=== PATIENT | female | born 1965 | race Caucasian/White ===

== ENCOUNTER → 2020-01-04 08:08 | Outpatient (BNVA) | payer OTHER, SELFPAY | PROVIDERS: Family Provider Nurse Practitioner; PCP Nurse Practitioner; Visit Provider Nurse Practitioner | DX: E11.9 Type 2 diabetes mellitus without complications (principal); E03.8 Other specified hypothyroidism | CPT/HCPCS: 80053; 80061; 83036; 84443 ==

== ENCOUNTER → 2020-01-11 09:09 | Outpatient (BNVA) | payer OTHER, SELFPAY | PROVIDERS: Family Provider Nurse Practitioner; PCP Nurse Practitioner; Visit Provider Nurse Practitioner | DX: E11.65 Type 2 diabetes mellitus with hyperglycemia (principal) | CPT/HCPCS: 81003 ==

== ENCOUNTER → 2020-03-26 08:26 | Outpatient (BNVA) | payer OTHER, SELFPAY | PROVIDERS: Family Provider Nurse Practitioner; PCP Nurse Practitioner; Visit Provider Nurse Practitioner | DX: E11.65 Type 2 diabetes mellitus with hyperglycemia (principal); E11.9 Type 2 diabetes mellitus without complications; E03.8 Other specified hypothyroidism; Z79.4 Long term (current) use of insulin | CPT/HCPCS: 80053; 80061; 81000; 83036; 84443 ==

== ENCOUNTER → 2020-07-09 08:09 | Outpatient (BNVA) | payer OTHER, SELFPAY | PROVIDERS: Family Provider Nurse Practitioner; PCP Nurse Practitioner; Visit Provider Nurse Practitioner | DX: E03.8 Other specified hypothyroidism (principal); E11.65 Type 2 diabetes mellitus with hyperglycemia; Z79.4 Long term (current) use of insulin | CPT/HCPCS: 80053; 80061; 81000; 83036; 84443 ==

== ENCOUNTER 2020-08-08 07:16 | Outpatient (CLI) | payer OTHER, SELFPAY ==
--- NOTE | 2020-08-08 07:35 | MM_ITS ---
WS: [id number] BILATERAL DIGITAL SCREENING MAMMOGRAM WITH CAD CLINICAL INFORMATION: SCREEN HISTORY: Screening mammogram. No current complaints. COMPARISON: TECHNIQUE: Bilateral CC and MLO views. FINDINGS: Fatty-replaced breasts bilaterally. No suspicious focal mass, asymmetry, calcifications, or api architect ural distortion. No evidence of malignancy. Stable intramammary lymph nodes. MM/[id number] IMPRESSION: BI-RADS: 2-Benign FOLLOW UP: 1 Year Follow-up Recommend return to annual screening mammography.
== END 2020-08-08 07:17 | disposition home or self-care (01) ==
LOC: RADSHAW 07:18
PROVIDERS: PCP Nurse Practitioner; Visit Provider Nurse Practitioner
DX: Z12.31 Encounter for screening mammogram for malignant neoplasm of breast (principal)
CPT/HCPCS: 77067

== ENCOUNTER → 2020-10-03 07:58 | Outpatient (BNVA) | payer OTHER, SELFPAY | PROVIDERS: PCP Nurse Practitioner; Visit Provider Nurse Practitioner | DX: E03.8 Other specified hypothyroidism (principal); E11.65 Type 2 diabetes mellitus with hyperglycemia; Z79.4 Long term (current) use of insulin | CPT/HCPCS: 80053; 80061; 81000; 83036; 84443 ==

== ENCOUNTER → 2021-01-14 08:03 | Outpatient (BNVA) | payer OTHER, SELFPAY | PROVIDERS: PCP Nurse Practitioner; Visit Provider Nurse Practitioner | DX: E03.8 Other specified hypothyroidism (principal); E11.65 Type 2 diabetes mellitus with hyperglycemia; Z79.4 Long term (current) use of insulin | CPT/HCPCS: 80053; 80061; 81000; 83036; 84443 ==

== ENCOUNTER → 2021-03-14 13:56 | Outpatient (BNVA) | payer OTHER, SELFPAY | PROVIDERS: PCP Nurse Practitioner; Visit Provider Nurse Practitioner | DX: N39.0 Urinary tract infection, site not specified (principal); E11.65 Type 2 diabetes mellitus with hyperglycemia; Z79.4 Long term (current) use of insulin; R30.0 Dysuria | CPT/HCPCS: 81000 ==

== ENCOUNTER → 2021-04-05 08:11 | Outpatient (BNVA) | payer OTHER, SELFPAY | PROVIDERS: PCP Nurse Practitioner; Visit Provider Nurse Practitioner | DX: E03.8 Other specified hypothyroidism (principal); E11.65 Type 2 diabetes mellitus with hyperglycemia; Z79.4 Long term (current) use of insulin | CPT/HCPCS: 80053; 80061; 81000; 83036; 84443 ==

== ENCOUNTER → 2021-07-01 08:06 | Outpatient (BNVA) | payer OTHER, SELFPAY | PROVIDERS: PCP Nurse Practitioner; Visit Provider Nurse Practitioner | DX: E11.65 Type 2 diabetes mellitus with hyperglycemia (principal); Z79.4 Long term (current) use of insulin; E03.8 Other specified hypothyroidism | CPT/HCPCS: 80053; 80061; 81000; 83036; 84443 ==

== ENCOUNTER 2021-08-23 08:02 | Outpatient (CLI) | payer OTHER, SELFPAY ==
--- NOTE | 2021-08-23 08:30 | MM_ITS ---
WS: [id number] BILATERAL DIGITAL SCREENING MAMMOGRAPHY WITH CAD CLINICAL INFORMATION: Z12.39 - Encounter for other screening for malignant neop... HISTORY: Screening mammogram. No current complaints. COMPARISON: August 08, 2020 TECHNIQUE: Bilateral CC and MLO views. FINDINGS: Scattered fibroglandular densities bilaterally. Stable left intramammary lymph nodes. No suspicious f ocal mass, asymmetry, calcifications, or architectural distortion. No evidence of malignancy. MM/[place] [id number] IMPRESSION: BI-RADS: 2-Benign FOLLOW UP: 1 Year Follow-up Recommend return to annual screening mammography.
== END 2021-08-23 08:03 | disposition home or self-care (01) ==
PROVIDERS: PCP Nurse Practitioner; Visit Provider Nurse Practitioner
DX: Z12.31 Encounter for screening mammogram for malignant neoplasm of breast (principal)
CPT/HCPCS: 77067

== ENCOUNTER → 2021-09-30 08:06 | Outpatient (BNVA) | payer OTHER, SELFPAY | PROVIDERS: PCP Nurse Practitioner; Visit Provider Nurse Practitioner | DX: E11.65 Type 2 diabetes mellitus with hyperglycemia (principal); Z79.4 Long term (current) use of insulin; E03.8 Other specified hypothyroidism | CPT/HCPCS: 80053; 80061; 83036; 84443 ==

== ENCOUNTER → 2021-10-02 08:47 | Outpatient (BNVA) | payer OTHER, SELFPAY | PROVIDERS: PCP Nurse Practitioner; Visit Provider Nurse Practitioner | DX: E11.65 Type 2 diabetes mellitus with hyperglycemia (principal); Z79.4 Long term (current) use of insulin | CPT/HCPCS: 81000 ==

== ENCOUNTER → 2021-12-23 07:56 | Outpatient (BNVA) | payer OTHER, SELFPAY | PROVIDERS: PCP Nurse Practitioner; Visit Provider Nurse Practitioner | DX: E11.65 Type 2 diabetes mellitus with hyperglycemia (principal); Z79.4 Long term (current) use of insulin; E03.8 Other specified hypothyroidism | CPT/HCPCS: 80053; 80061; 81000; 83036; 84443 ==

== ENCOUNTER → 2022-03-21 08:06 | Outpatient (BNVA) | payer OTHER, SELFPAY | PROVIDERS: PCP Nurse Practitioner; Visit Provider Nurse Practitioner | DX: E11.65 Type 2 diabetes mellitus with hyperglycemia (principal); Z79.4 Long term (current) use of insulin; E03.8 Other specified hypothyroidism | CPT/HCPCS: 80053; 80061; 83036; 84443 ==

== ENCOUNTER → 2022-04-01 10:02 | Outpatient (BNVA) | payer OTHER, SELFPAY | PROVIDERS: PCP Nurse Practitioner; Visit Provider Nurse Practitioner | DX: E11.65 Type 2 diabetes mellitus with hyperglycemia (principal); Z79.4 Long term (current) use of insulin; Z79.890 Hormone replacement therapy; E03.8 Other specified hypothyroidism; E66.9 Obesity, unspecified | CPT/HCPCS: 81000 ==

== ENCOUNTER → 2022-07-14 08:05 | Outpatient (BNVA) | payer OTHER, SELFPAY | PROVIDERS: PCP Nurse Practitioner; Visit Provider Nurse Practitioner | DX: E03.8 Other specified hypothyroidism (principal); E11.65 Type 2 diabetes mellitus with hyperglycemia; Z79.4 Long term (current) use of insulin | CPT/HCPCS: 80053; 80061; 81000; 83036; 84443 ==

== ENCOUNTER 2022-08-29 06:51 | Outpatient (CLI) | payer OTHER, SELFPAY ==
--- NOTE | 2022-08-29 07:21 | MM_ITS ---
WS: [id number] BILATERAL SCREENING DIGITAL TOMOSYNTHESIS MAMMOGRAM WITH CAD HISTORY: SCREENING COMPARISON: 06/21/2018, 08/23/2021, 08/08/2020 Bilateral CC and MLO views with tomosynthesis and synthetic mammography submitted. Computer aided det ection analyzed. Breast composition: There are scattered areas of fibroglandular density. No suspicious masses, microc alcifications or architectural distortion. Ovoid nodule posterior to the LEFT nipple stable over mult iple prior years. Small lymph nodes are noted and stable within each breast. MM/[place] [id number] IMPRESSION: BI-RADS: 2-Benign FOLLOW UP: 1 Year Follow-up
== END 2022-08-29 06:52 | disposition home or self-care (01) ==
LOC: RAD 06:51
PROVIDERS: PCP Nurse Practitioner; Visit Provider Nurse Practitioner
DX: Z12.31 Encounter for screening mammogram for malignant neoplasm of breast (principal)
CPT/HCPCS: 77063; 77067

== ENCOUNTER → 2022-10-13 08:10 | Outpatient (BNVA) | payer OTHER, SELFPAY | PROVIDERS: PCP Nurse Practitioner; Visit Provider Nurse Practitioner | DX: E03.8 Other specified hypothyroidism (principal); E11.65 Type 2 diabetes mellitus with hyperglycemia; Z79.4 Long term (current) use of insulin | CPT/HCPCS: 80053; 80061; 81000; 83036; 84443 ==

== ENCOUNTER → 2022-11-27 14:20 | Outpatient (BNVA) | payer OTHER, SELFPAY | PROVIDERS: PCP Nurse Practitioner; Visit Provider Emergency Medicine | DX: N39.0 Urinary tract infection, site not specified (principal); N10 Acute pyelonephritis | CPT/HCPCS: 81000; 87077; 87086; 87184 ==

== ENCOUNTER → 2023-01-02 08:02 | Outpatient (BNVA) | payer OTHER, SELFPAY | PROVIDERS: PCP Nurse Practitioner; Visit Provider Nurse Practitioner | DX: E03.8 Other specified hypothyroidism (principal); E11.65 Type 2 diabetes mellitus with hyperglycemia; Z79.4 Long term (current) use of insulin | CPT/HCPCS: 80053; 80061; 81000; 83036; 84443 ==

== ENCOUNTER 2023-01-15 14:58 | Emergency (ER) | payer OTHER, SELFPAY ==
[2023-01-15 15:08] VITALS: BP 112/79; PULSE 101; RESP 14; TEMP 36.8; O2SAT 95; BMI 28.7
[2023-01-15 15:30] VITALS: BP 116/78; PULSE 98; RESP 16; O2SAT 96
--- NOTE | 2023-01-15 15:35 | ECG_ITS ---
[facility] Test Date: 2023-01-15 Pat Name: Daysi Mace Department: Room: Gender: Female Performance Tester: : 1965 Requested By: Sohail Silver Order Number: [id number] Edith MD: Madison Nina M.D. Measurements Intervals [place] Rate: 97 P: 55 MN: 140 QRS: -21 QRSD: 93 T: 37 QT: 349 QTc: 444 Interpretive Statements SINUS RHYTHM POSSIBLE ANTERIOR MYOCARDIAL INFARCTION , OF INDETERMINATE AGE [30 ms Q WAVE IN V3/V4, OR R < 0.2 mV IN V4] No previous ECG available for comparison Electronically Signed On 01-15-2023 22:23:40 TEACHER OF THE HANDICAPPED by Madison Nina M.D. [id number]
[2023-01-15 15:43] LABS: Glucose Point of Care 80 mg/dL (70-110)
[2023-01-15 15:45] LABS: Basophils # 0.1 10^3/uL (0.0-0.1); Basophils % 0.6 %; Eosinophils # 0.1 10^3/uL (0.0-0.8); Eosinophils % 1.2 %; Hematocrit 43.9 % (37.0-47.0); Lymphocytes # 2.4 10^3/uL (0.8-4.8); Lymphocytes % 30.1 %; Mean Corpuscular HGB Conc 31.9 g/dL (30.0-36.0); Mean Corpuscular Hemoglobin 30.6 pg (28.0-34.0); Mean Corpuscular Volume 96.1 fl (81-99); Mean Platelet Volume 10.9 fL (7.4-10.4); Monocytes # 0.6 10^3/uL (0.2-0.9); Neutrophils # 4.88 10^3/uL (1.8-7.7); Neutrophils % 60.9 %; Nucleated Red Blood Cells % 0 %; Platelet Count 268 10^3/cmm (130-400); Red Blood Count 4.57 10^6/uL (4.1-5.3)
--- NOTE | 2023-01-15 16:19 | ED_ITS ---
HPI - Seizure General: Chief Complaint: Seizure Stated Complaint: LOW BLOOD SUGAR/ SEIZURE Time Seen by Provider: 01/15/23 15:08 Source: patient Mode of arrival: ambulatory History of Present Illness: HPI Narrative: 57-year-old female brought in via EMS because of a presumed witnessed seizure. She was noted to be hypoglycemic by EMS on the scene and given D10. On arrival here she is awake and alert has no further symptoms. She arrives in the ER with a blood sugar tested at 80. She is usually uses Toujeo at night but she adjusts the dose of her Toujeo and also adjust her Humalog during the day when asked how she makes her adjustments she essentially admitted that she kind of makes a gestalt gas that her needs. She has had some issues with hypoglycemia previously as well and I did review and made some adjustments to her insulin dose at home recently. She currently sees a nurse practitioner. Onset (ago): minute(s) Description of Episode: loss of consciousness Witnessed: Yes - by Bystander Trauma: No Seizure History: No Place: Work Possible Precipitating Event: other (Hypoglycemia) Associated symptoms: Deny chest pain, chills, confusion, cough, diaphoresis, fev er(s), anorexia, malaise, rash, short of breath, syncope or weakness Review of Systems Const: Denies: fever(s), chills, body aches, change in appetite, fatigue, malaise or diaphoresis ENMT: Denies: throat pain, ear or mastoid pain, nasal discharge or nasal congestion Card: Denies: chest pain, palpitations, irregular heart rhythm, edema, syncope, dyspnea on exertion or orthopnea Resp: Denies: dyspnea, productive cough or non-productive cough GI: Denies: abdominal pain, nausea, vomiting, hematemesis, coffee ground emesis, diarrhea, constipation, bloating, hematochezia or melena : Denies: flank pain, difficulty voiding, dysuria, urinary frequency or urinary urgency Skin/Breast: Denies: rash or pruritus Neuro: Denies: confusion PFSH ED PFSH: Medical History Adult onset hypothyroidism Diabetes mellitus with hyperglycemia, with long-term current use of insulin Post-menopause on HRT (hormone replacement therapy) Surgical History History of ankle surgery (~2007) right with plates and screws Family History Other Cancer Hypertension Social History Smoking and tobacco status: never smoked Second hand smoke exposure: No Smoking risk assessment/counseling performed?: No Alcohol intake: never Desire information about alcohol rehabilitation?: No Counseling given: No Desire information about substance/drug rehabilitation?: No Counseling given: No Adopted: No Caregiver/support person: No Lives independently: Yes Household members: other Marital status: Single Number of children: 0 service: No Current occupational status: employed Current gender identity: Female Physical Exam Const: GENERAL APPEARANCE: cooperative and comfortable ORIENTATION/CONSCIOUSNESS: Yes awake, Yes oriented to person, Yes oriented to place and Yes oriented to time HENMT: COMMON NORMALS: normocephalic, atraumatic and hearing grossly normal bilaterally HEAD & SCALP: normocephalic and atraumatic Resp: COMMON NORMALS: normal respiratory effort, No retractions, No use of accessory muscles and clear to auscultation bilaterally AUSCULTATION: clear to auscultation bilaterally Cardio: COMMON NORMALS: regular rate, regular rhythm and No murmurs present (Cardio) RATE: regular rate RHYTHM: regular rhythm GI: COMMON NORMALS: Soft to palpation and No hepatosplenomegaly present AUSCULTATION: Yes normoactive bowel sounds PALPATION: Yes Soft to palpation, No Tenderness to palpation present (GI), No Guarding due to palpation present (GI) and Yes No hepatosplenomegaly present Extremity: COMMON NORMALS: normal to inspection, capillary refill normal, no clubbing, cyanosis or edema, no calf tenderness and no pedal edema Neuro: SENSORIUM/ORIENTATION: Yes oriented to person, Yes oriented to place and Yes oriented to time Skin: COMMON NORMALS: no rashes or lesions noted GENERAL SKIN EXAM: no rashes or lesions noted Course Vital Signs: Vital signs: Vital Signs Temperature 98.2 F 01/15/23 15:08 Pulse Rate 104 H 01/15/23 17:54 Respiratory Rate 16 01/15/23 17:54 Blood Pressure 116/85 01/15/23 17:54 Pulse Oximetry 95 01/15/23 17:54 Oxygen Delivery Me thod 01/15/23 15:08 MDM - Seizure MDM Narrative Medical decision making narrative: Patient hypoglycemic episode. Blood sugars are not well controlled as she has been adjusting her Toujeo dose at night as well as her shorting acting insulin during the day. Generally she has been using a 15 or 16 units of the Toujeo. I asked her for now to decrease to 12 units uses sliding scale during the day and we will get her set up to see Dr. Wilson after fluids and eating her blood pressure is stabilized in the upper 100s and she is feeling much better. Medical Records Attestation: I reviewed the patient's medical records. Lab Data Attestation: I reviewed the patient's lab results. 01/15/23 15:20 01/15/23 16:00 Labs: Laboratory Results WBC 8.0 10^3/uL (4.0-10.0) 01/15/23 15:20 RBC 4.57 10^6/uL (4.1-5.3) 01/15/23 15:20 Hgb 14.0 g/dL (11.5-15.3) 01/15/23 15:20 Hct 43.9 % (37.0-47.0) 01/15/23 15:20 MCV 96.1 fl (81-99) 01/15/23 15:20 MCH 30.6 pg (28.0-34.0) 01/15/23 15:20 MCHC 31.9 g/dL (30.0-36.0) 01/15/23 15:20 RDW 12.0 % (12.1-15.1) L 01/15/23 15:20 Plt Count 268 10^3/cmm (130-400) 01/15/23 15:20 MPV 10.9 fL (7.4-10.4) H 01/15/23 15:20 Neut % (Auto) 60.9 % 01/15/23 15:20 Lymph % (Auto) 30.1 % 01/15/23 15:20 [place] % (Auto) 7.0 % 01/15/23 15:20 Eos % (Auto) 1.2 % 01/15/23 15:20 Baso % (Auto) 0.6 % 01/15/23 15:20 Neut # (Auto) 4.88 10^3/uL (1.8-7.7) 01/15/23 15:20 Lymph # (Auto) 2.4 10^3/uL (0.8-4.8) 01/15/23 15:20 [place] # (Auto) 0.6 10^3/uL (0.2-0.9) 01/15/23 15:20 Eos # (Auto) 0.1 10^3/uL (0.0-0.8) 01/15/23 15:20 Baso # (Auto) 0.1 10^3/uL (0.0-0.1) 01/15/23 15:20 Nucleated RBC % (auto) 0 % 01/15/23 15:20 Nucleated RBCs # 0.0 /100WBC 01/15/23 15:20 Sodium 140 mmol/L (136-145) 01/15/23 16:00 Potassium 4.4 mmol/L (3.5-5.1) 01/15/23 16:00 Chloride 102 mmol/L (98-107) 01/15/23 16:00 Carbon Dioxide 27 mmol/L (22-29) 01/15/23 16:00 Anion Gap 15.4 (5-19) 01/15/23 16:00 BUN 12 mg/dL (6-20) 01/15/23 16:00 Creatinine 0.6 mg/dL (0.5-0.9) 01/15/23 16:00 GFR Calculation 102.3 mL/min (90-130) 01/15/23 16:00 Glucose 84 mg/dL (65-115) 01/15/23 16:00 POC Glucose 179 mg/dL (70-110) H 01/15/23 17:34 Calculated Osmolality 289 mOsm/kg (285-295) 01/15/23 16:00 Calcium 9.7 mg/dL (8.5-10.5) 01/15/23 16:00 Creatine Kinase 133 U/L (26-192) 01/15/23 16:00 Discharge Plan Discharge Patient Disposition: Home Clinical Impression: Hypoglycemia, 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, with long-term current use of insulin Condition: Stable Prescriptions: No Action Jardiance 25 mg tablet 25 mg PO QAM Qty: 30 2RF estradiol [Estrace] 0.5 mg tablet 0.5 mg PO DAILY 23 Days Qty: 23 2RF Rx Instructions: off 5 days; repeat cycle Toujeo Max U-300 SoloStar 300 unit/mL (3 mL) insulin pen See Rx Instructions SUBCUT DAILY Qty: 6 2RF Rx Instructions: up to 80 SUBCUT daily; Humalog KwikPen Insulin 200 unit/mL (3 mL) insulin pen 3 - 18 unit SUBCUT TID Qty: 6 2RF levothyroxine [Synthroid] 88 mcg tablet See Rx Instructions PO DAILY Qty: 35 2RF Rx Instructions: 1.5 tab on M&F 1 tab all other days PO daily; lisinopril 2.5 mg tablet 2.5 mg PO DAILY Qty: 30 2RF metformin 500 mg tablet extended release 24 hr 2,000 mg PO DAILY Qty: 120 2RF progesterone micronized [Prometrium] 100 mg capsule 100 mg PO QAM 10 Days Qty: 10 2RF Rx Instructions: use day 1-10 each month Ozempic 1 mg/dose (4 mg/3 mL) pen injector 1 mg SUBCUT .weekly Qty: 3 2RF atorvastatin 10 mg tablet 10 mg PO DAILY Qty: 30 2RF (DME) pen needle, diabetic [TRUEplus Pen Needle] 32 gauge x 5/32 needle See Rx Instructions .ROUTE .MEDSUPPLY Qty: 200 5RF Rx Instructions: 5 time day (DME) FreeStyle Catracho 2 Sensor Kit See Rx Instructions .ROUTE .MEDSUPPLY Qty: 2 11RF Rx Instructions: change every 14 days (DME) FreeStyle Catracho 2 [place] Misc See Rx Instructions .ROUTE .MEDSUPPLY Qty: 1 0RF Rx Instructions: As directed Discharge Orders: Discharge ED (Routine); Ordered 01/15/23 Ordered By: Sohail Henning Referrals: Nellie Naqvi, PROFESSOR OF COMMUNICATION [employer] [Primary Care Provider] - Discharge Diet: Usual diet Discharge Activity: Resume usual activity Patient Instructions: Opioid Safety, Pain Management Activity Restrictions/Additional Instructions: You were seen today for hypoglycemic episode. Would recommend that you decrease your nighttime long-term insulin Truleo to 12 units each night. internal control manager will make arrangements for you to establish with Dr. Wilson at the endocrinology clinic. Coding Level of Care Code ED Knitting Demonstrator for Addis Kim
[2023-01-15 16:28] LABS: Anion Gap 15.4 (5-19); Blood Urea Nitrogen 12 mg/dL (6-20); Calcium 9.7 mg/dL (8.5-10.5); Carbon Dioxide 27 mmol/L (22-29); Chloride 102 mmol/L (98-107); Creatine Phosphokinase 133 U/L (26-192); Glomerular Filtration Rate 102.3 mL/min (90-130); Glucose 84 mg/dL (65-115); Osmolality Calculated 289 mOsm/kg (285-295); Potassium 4.4 mmol/L (3.5-5.1); Sodium 140 mmol/L (136-145)
[2023-01-15 16:30] VITALS: BP 121/72; PULSE 95; O2SAT 97
[2023-01-15 16:38] LABS: Glucose Point of Care 97 mg/dL (70-110)
--- NOTE | 2023-01-15 17:06 | PC.NURSE ---
dr. kessler requested pt eat a snack to assist with increase in blood glucose. pt given sandwich and snack pack.
[2023-01-15 17:37] LABS: Glucose Point of Care 179 mg/dL (70-110)
--- NOTE | 2023-01-15 17:39 | PC.NURSE ---
PT POST SNACK BLOOD SUGAR 179
[2023-01-15 17:54] VITALS: BP 116/85; PULSE 104; RESP 16; O2SAT 95
--- NOTE | 2023-01-16 09:43 | DCPLANNER ---
Addendum entered by Sherie Olivera 03/18/23 08:27: Patient had a follow up appointment scheduled with endocrinology - patient did attend appointment. Addendum entered by Sherie Olivera 01/20/23 15:05: Patient has a follow up appointment scheduled for Monday, March 13, 2023 at 8:[address] Wilson at endocrinology. Clinic will call patient with appointment information. Original Note: manager perioperative had message to schedule a follow up appointment for patient with endocrinology. manager perioperative sent patients information to the front office staff at endocrinology. Patients information will be printed and reviewed. Clinic will call patient with appointment information.
== END 2023-01-15 17:56 | disposition home or self-care (01) ==
PROVIDERS: Emergency Provider Family Medicine; PCP Nurse Practitioner
DX: E11.649 Type 2 diabetes mellitus with hypoglycemia without coma (principal); E11.628 Type 2 diabetes mellitus with other skin complications; Z79.4 Long term (current) use of insulin; Z79.890 Hormone replacement therapy
CPT/HCPCS: 36415; 36416; 80048; 82550; 82962; 85025; 93005; 99284

== ENCOUNTER → 2023-04-06 07:55 | Outpatient (BNVA) | payer OTHER, SELFPAY | PROVIDERS: PCP Nurse Practitioner; Visit Provider Nurse Practitioner | DX: E11.65 Type 2 diabetes mellitus with hyperglycemia (principal); E03.8 Other specified hypothyroidism; Z79.4 Long term (current) use of insulin | CPT/HCPCS: 80053; 80061; 83036; 84443 ==

== ENCOUNTER → 2023-06-26 07:59 | Outpatient (BNVA) | payer OTHER, SELFPAY | PROVIDERS: PCP Nurse Practitioner; Visit Provider Nurse Practitioner | DX: E11.65 Type 2 diabetes mellitus with hyperglycemia (principal); Z79.4 Long term (current) use of insulin; E03.8 Other specified hypothyroidism | CPT/HCPCS: 80053; 80061; 81000; 83036; 84443 ==

== ENCOUNTER 2023-07-06 07:29 | Outpatient (CLI) | payer OTHER, SELFPAY ==
[2023-07-06 08:20] LABS: Anion Gap 13.3 (5-19); Blood Urea Nitrogen 16 mg/dL (6-20); Calcium 9.1 mg/dL (8.5-10.5); Carbon Dioxide 27 mmol/L (22-29); Chloride 102 mmol/L (98-107); Glomerular Filtration Rate 126.3 mL/min (90-130); Glucose 236 mg/dL (65-115); Osmolality Calculated 295 mOsm/kg (285-295); Potassium 4.3 mmol/L (3.5-5.1); Sodium 138 mmol/L (136-145)
[2023-07-08 14:44] LABS: C-Peptide <0.10 ng/mL (0.80-3.85)
== END 2023-07-06 07:30 | disposition home or self-care (01) ==
PROVIDERS: PCP Nurse Practitioner; Visit Provider Internal Medicine
DX: E11.65 Type 2 diabetes mellitus with hyperglycemia (principal); E78.2 Mixed hyperlipidemia; Z79.4 Long term (current) use of insulin
CPT/HCPCS: 36415; 80048; 84681

== ENCOUNTER 2023-09-04 07:04 | Outpatient (CLI) | payer OTHER, SELFPAY ==
--- NOTE | 2023-09-04 07:53 | MM_ITS ---
WS: [id number] BILATERAL SCREENING DIGITAL TOMOSYNTHESIS MAMMOGRAM WITH CAD HISTORY: SCREEN COMPARISON: 08/29/2022 and 08/23/2021 and 06/21/2018 Bilateral CC and MLO views with tomosynthesis and synthetic mammography submitted. Computer aided det ection analyzed. Breast composition: There are scattered areas of fibroglandular density. No suspicious masses, microc alcifications or architectural distortion. Soft tissue mass posterior to the LEFT nipple is stable fo r multiple prior years. Benign lymph node 3:00 LEFT breast. No distortion. IMPRESSION: MM/[place] [id number] BI-RADS: 2-Benign FOLLOW UP: 1 Year Follow-up
== END 2023-09-04 07:05 | disposition home or self-care (01) ==
LOC: RAD 07:05
PROVIDERS: PCP Nurse Practitioner; Visit Provider Nurse Practitioner
DX: Z12.31 Encounter for screening mammogram for malignant neoplasm of breast (principal)
CPT/HCPCS: 77063; 77067

== ENCOUNTER → 2023-09-25 08:08 | Outpatient (BNVA) | payer OTHER, SELFPAY | PROVIDERS: PCP Nurse Practitioner; Visit Provider Nurse Practitioner | DX: E03.8 Other specified hypothyroidism (principal); E10.9 Type 1 diabetes mellitus without complications | CPT/HCPCS: 80053; 80061; 81000; 83036; 84443 ==

== ENCOUNTER 2023-10-08 07:45 | Outpatient (CLI) | payer OTHER, SELFPAY ==
[2023-10-08 09:43] LABS: Estmated Average Glucose 186; Hemoglobin A1C 8.1 % (4.0-6.0)
== END 2023-10-08 07:46 | disposition home or self-care (01) ==
LOC: LAB 07:46
PROVIDERS: PCP Nurse Practitioner; Visit Provider Internal Medicine
DX: E03.8 Other specified hypothyroidism (principal)
CPT/HCPCS: 36415; 83036

== ENCOUNTER → 2023-12-16 08:09 | Outpatient (BNVA) | payer OTHER, SELFPAY | PROVIDERS: PCP Nurse Practitioner; Visit Provider Internal Medicine | DX: E10.9 Type 1 diabetes mellitus without complications (principal); E03.8 Other specified hypothyroidism; Z79.899 Other long term (current) drug therapy | CPT/HCPCS: 80053; 80061; 82043; 83036; 84439; 84443 ==

== ENCOUNTER 2024-01-07 05:27 | Day surgery (SDC) | payer OTHER, SELFPAY ==
[2024-01-07 06:02] VITALS: BP 105/62; PULSE 80; RESP 18; TEMP 36.2; O2SAT 96
[2024-01-07 06:03] VITALS: BMI 24.3
[2024-01-07] MEDS: sodium chloride 0.9% 1,000 ML 30 ML IV (06:06)
[2024-01-07 06:15] LABS: Glucose Point of Care 237 mg/dL (70-110)
--- NOTE | 2024-01-07 06:25 | ANES.PREANE2 ---
Pre-Anesthetic Assessment Height/Weight: Height 1.6 m Weight 62.142 kg Temp Pulse Resp BP Pulse Ox O2 Del Method 97.1 F L 80 18 105/62 96 Room Air 01/07/24 06:02 01/07/24 06:02 01/07/24 06:02 01/07/24 06:02 01/07/24 06:02 01/07/24 06:02 Preop Diagnosis: Screening Operation Date: 01/07/24 07:00 [place] Procedures [place] 68091 colon G0121 screen colon A risk Z12.11(Not Applicable) - Benson Shaffer MD Familial anesthetic complications: None Was Beta Kylee taken within 24 hours: N/A Was Clonidine taken within 24 hours: N/A Last intake: Intake Last Liquid Date 01/06/24 Last Liquid Time 20:00 Last Solid Date 01/05/24 Social No alcohol and No tobacco Exam alert, oriented x 3, clear to auscultation bilaterally and regular rate & rhythm Airway Submandibular: within normal limits Cervical ROM: within normal limits Mallampati: Class II Dentition: full History/ROS No significant history except as noted and No significant complaints Pulmonary None reported CV/HEM None reported None reported Hepatic None reported GI None reported Metabolic Diabetes Mellitus and Thyroid Disease [facility] [place] None reported Neuropsych Seizure (March 2023 d/t hypoglycemia) Anesthetic Plan ASA status: 2 Anesthesia: Anesthesia Evaluation, General and MAC Risk of > 500 ml blood loss (7ml/kg in children): No Medications/Allergies Home Medications Medication Instructions Recorded Confirmed Last Taken Type flash glucose scanning reader #1 ea 10/29/22 01/06/24 01/06/24 Rx (FreeStyle Catracho 2 [place]) fluticasone propionate 50 1 spray intranasal DAILY PRN nasal 05/03/23 01/06/24 01/05/24 Rx mcg/actuation nasal congestion #16 grams spray,suspension (Flonase Allergy Relief) pen needle, diabetic 32 gauge x #200 ea 09/02/23 01/06/24 01/06/24 Rx 5/32 (TRUEplus Pen Needle) flash glucose sensor (FreeStyle #2 ea 09/21/23 01/06/24 01/06/24 Rx Catracho 2 Sensor kit) atorvastatin 10 mg tablet 10 mg PO DAILY #30 tabs 12/23/23 01/06/24 01/06/24 Rx blood sugar diagnostic (OneTouch #100 ea 12/23/23 01/06/24 01/06/24 Rx Verio test strips) estradiol 0.5 mg tablet (Estrace) 0.5 mg PO DAILY 23 days #23 tabs 12/23/23 01/06/24 01/06/24 Rx insulin glargine U-300 conc 300 See Rx Instructions SUBCUT DAILY 12/23/23 01/06/24 01/06/24 Rx unit/mL (3 mL) subcutaneous pen #6 mL (Toujeo Max U-300 SoloStar) insulin lispro 200 unit/mL (3 mL) 3 - 18 unit (0.015 - 0.09 mL) 12/23/23 01/06/24 01/06/24 Rx subcutaneous pen (Humalog KwikPen SUBCUT TID #6 mL U-200 Insulin) levothyroxine 88 mcg tablet See Rx Instructions PO DAILY #35 12/23/23 01/06/24 01/06/24 Rx (Synthroid) tabs lisinopril 2.5 mg tablet 2.5 mg PO DAILY #30 tabs 12/23/23 01/06/24 01/06/24 Rx progesterone micronized 100 mg 100 mg PO QAM 10 days #10 caps 12/23/23 01/06/24 01/06/24 Rx capsule (Prometrium) tirzepatide 10 mg/0.5 mL 10 mg (0.5 mL) SUBCUT .weekly #2 mL 12/23/23 01/06/24 12/28/23 Rx subcutaneous pen injector (Mounjaro) Allergies Allergy/AdvReac Type Severity Reaction Status Date / Time cefuroxime [From Ceftin] Allergy ALGY-Hives Verified 01/07/24 06:07 Sulfa (Sulfonamide Allergy ALGY-Rash Verified 01/07/24 06:07 Antibiotics) Current Medications Generic Name Dose Route Start Last Admin Trade Name Freq PRN Reason Stop Dose Admin Sodium Chloride 1,000 mls @ 30 mls/hr 01/07/24 06:00 01/07/24 06:06 Sodium Chloride 0.9% IV 01/08/24 05:59 30 mls/hr .Q24H STACY Administration PFSH Anesthesia Medical History Post-menopause on HRT (hormone replacement therapy) Adult onset hypothyroidism Surgical History (Updated 12/24/23 @ 08:26 by AMILCAR Pablo) Hx of colonoscopy 13 yrs ago History of ankle surgery (~2007) right with plates and screws Family History Father Cancer colon Other Hypertension Social History Smoking and tobacco/nicotine status: never used tobacco/nicotine Second hand smoke exposure: No Alcohol intake: never Substance/Drug Use: never Adopted: No Caregiver/support person: No Lives independently: Yes Household members: other Marital status: Single Number of children: 0 service: No Current occupational status: employed Do you think of yourself as: Straight/Heterosexual Current gender identity: Female Data Anesthesia Cardiac Studies: No Data to Display
--- NOTE | 2024-01-07 06:33 | W.PM.OPSFHP ---
Same Day Surgery H&P Indication for Procedure/HPI DATE OF PROCEDURE: January 07, 2024 CHIEF COMPLAINT/INDICATIONFOR SURGICAL PROCEDURE: need for screening colonoscopy PREOP DIAGNOSIS: Screening PLANNED PROCEDURE: Operation Date: 01/07/24 07:00 Proposed Procedures p 23626 colon G0121 screen colon A risk Z12.11(Not Applicable) - Benson Shaffer MD Medications/Allergies* Allergies/Adverse Reactions Allergy/AdvReac Type Severity Reaction Status Date / Time cefuroxime [From Ceftin] Allergy ALGY-Hives Verified 01/07/24 06:07 Sulfa (Sulfonamide Allergy ALGY-Rash Verified 01/07/24 06:07 Antibiotics) Current Medications: Generic Name Dose Route Start Last Admin Trade Name Freq PRN Reason Stop Dose Admin Sodium Chloride 1,000 mls @ 30 mls/hr 01/07/24 06:00 01/07/24 06:06 Sodium Chloride 0.9% IV 01/08/24 05:59 30 mls/hr .Q24H STACY Administration Pertinent History/Comorbid Conditions* Medical History (Updated 10/04/23 @ 10:13 by AMILCAR Pablo) Post-menopause on HRT (hormone replacement therapy) Adult onset hypothyroidism Surgical History (Updated 12/24/23 @ 08:26 by AMILCAR Pablo) Hx of colonoscopy 13 yrs ago History of ankle surgery (~2007) right with plates and screws Family History (Updated 10/12/23 @ 08:09 by MARLENE Ackerman) Cancer Father colon Hypertension Social History Smoking and tobacco/nicotine status: never used tobacco/nicotine Second hand smoke exposure: No Alcohol intake: never Substance/Drug Use: never Adopted: No Caregiver/support person: No Lives independently: Yes Household members: other Marital status: Single Number of children: 0 service: No Current occupational status: employed Do you think of yourself as: Straight/Heterosexual Current gender identity: Female Pertinent Exam Findings alert, oriented x 3, clear to auscultation bilaterally and regular rate & rhythm Recommendations Surgery/Procedure today Coding Level of Care Code Acute Code for Chg Julio
[2024-01-07 07:28] VITALS: BP 128/76; PULSE 91; RESP 12; TEMP 36.2; O2SAT 98
[2024-01-07 07:40] VITALS: BP 116/74; PULSE 92; RESP 18; O2SAT 98
--- NOTE | 2024-01-07 13:15 | ANE.PACU2 ---
Inpatient post-anesthesia follow up: Airway intact: Yes Vital signs: Temperature 97.2 F Pulse Rate 92 Respiratory Rate 18 Blood Pressure 116/74 Pulse Oximetry 98 Oxygen Delivery Me thod Room Air Oxygen Flow Rate Fraction of Inspir ed Oxygen Hydration adequate: Yes Nausea and vomiting: No Pain level: 2 Mental status: Baseline
== END 2024-01-07 08:04 | disposition home or self-care (01) ==
PROVIDERS: PCP Nurse Practitioner; Visit Provider Surgery
PROC: 0DJD8ZZ Inspection of Lower Intestinal Tract, Via Natural or Artificial Opening Endoscopic (ICD-10-PCS; CPT 45378; principal; 2024-01-07 07:00)
DX: Z12.11 Encounter for screening for malignant neoplasm of colon (principal); E03.9 Hypothyroidism, unspecified; E11.9 Type 2 diabetes mellitus without complications; Z79.4 Long term (current) use of insulin
CPT/HCPCS: 36416; 45378; 82962; J0461; J2704; J3490; J7030

== ENCOUNTER → 2024-03-14 08:09 | Outpatient (BNVA) | payer OTHER, SELFPAY | PROVIDERS: PCP Nurse Practitioner; Visit Provider Nurse Practitioner | DX: E03.8 Other specified hypothyroidism (principal); E10.9 Type 1 diabetes mellitus without complications; Z79.899 Other long term (current) drug therapy | CPT/HCPCS: 80053; 80061; 81000; 82043; 83036; 84439; 84443 ==

== ENCOUNTER → 2024-05-20 08:01 | Outpatient (BNVA) | payer OTHER, SELFPAY | PROVIDERS: PCP Nurse Practitioner; Visit Provider Nurse Practitioner | DX: E11.65 Type 2 diabetes mellitus with hyperglycemia (principal); Z79.4 Long term (current) use of insulin; E03.8 Other specified hypothyroidism; E03.9 Hypothyroidism, unspecified | CPT/HCPCS: 80053; 80061; 81000; 82043; 83036; 84439; 84443; 85025 ==

== ENCOUNTER → 2024-10-03 08:11 | Outpatient (BNVA) | payer OTHER, SELFPAY | PROVIDERS: PCP Nurse Practitioner; Visit Provider Nurse Practitioner | DX: E11.9 Type 2 diabetes mellitus without complications (principal); E03.8 Other specified hypothyroidism | CPT/HCPCS: 80053; 80061; 83036; 84443; 85025 ==

== ENCOUNTER → 2024-10-06 08:50 | Outpatient (BNVA) | payer OTHER, SELFPAY | PROVIDERS: PCP Nurse Practitioner; Visit Provider Nurse Practitioner | DX: E11.65 Type 2 diabetes mellitus with hyperglycemia (principal); Z79.4 Long term (current) use of insulin; Z79.890 Hormone replacement therapy; E03.8 Other specified hypothyroidism | CPT/HCPCS: 81000 ==

== ENCOUNTER 2024-10-10 06:56 | Outpatient (CLI) | payer OTHER, SELFPAY ==
--- NOTE | 2024-10-10 07:17 | MM_ITS ---
WS: [id number] BILATERAL SCREENING DIGITAL TOMOSYNTHESIS MAMMOGRAM WITH CAD HISTORY: Z12.31 - Encounter for screening mammogram for malignant ... COMPARISON: 09/04/2023, 08/29/2022, 06/21/2018 and 08/08/2020 Bilateral CC and MLO views with tomosynthesis and synthetic mammography submitted. Computer aided det ection analyzed. Breast composition: There are scattered areas of fibroglandular density. No suspicious masses, microc alcifications or architectural distortion. There is scattered bilateral breast masses which are proba biju lymph nodes. Long-term stability of a lobulated solid mass LEFT retroareolar region. MM/MM scr BI tomosynthesis [id number] IMPRESSION: BI-RADS: 2 - Benign. FOLLOW UP: 1 Year Follow-up
== END 2024-10-10 06:57 | disposition home or self-care (01) ==
PROVIDERS: PCP Nurse Practitioner; Visit Provider Nurse Practitioner
DX: Z12.31 Encounter for screening mammogram for malignant neoplasm of breast (principal); R92.323 Mammographic fibroglandular density, bilateral breasts; N63.42 Unspecified lump in left breast, subareolar
CPT/HCPCS: 77063; 77067

== ENCOUNTER → 2024-12-22 07:55 | Outpatient (BNVA) | payer OTHER, SELFPAY | PROVIDERS: PCP Nurse Practitioner; Visit Provider Nurse Practitioner | DX: E03.8 Other specified hypothyroidism (principal); E11.65 Type 2 diabetes mellitus with hyperglycemia; Z79.4 Long term (current) use of insulin; E11.9 Type 2 diabetes mellitus without complications | CPT/HCPCS: 80053; 80061; 83036; 84443; 85025 ==

== ENCOUNTER → 2024-12-26 08:46 | Outpatient (BNVA) | payer OTHER, SELFPAY | PROVIDERS: PCP Nurse Practitioner; Visit Provider Nurse Practitioner | DX: E11.9 Type 2 diabetes mellitus without complications (principal) | CPT/HCPCS: 81000 ==

== ENCOUNTER → 2025-03-16 08:01 | Outpatient (BNVA) | payer OTHER, SELFPAY | PROVIDERS: PCP Nurse Practitioner; Visit Provider Nurse Practitioner | DX: E11.65 Type 2 diabetes mellitus with hyperglycemia (principal); Z79.4 Long term (current) use of insulin; E11.9 Type 2 diabetes mellitus without complications | CPT/HCPCS: 80053; 80061; 81000; 83036; 84443; 85025 ==

== ENCOUNTER → 2025-06-08 07:57 | Outpatient (BNVA) | payer OTHER, SELFPAY | PROVIDERS: PCP Nurse Practitioner; Visit Provider Nurse Practitioner | DX: E11.65 Type 2 diabetes mellitus with hyperglycemia (principal); Z79.4 Long term (current) use of insulin; R31.9 Hematuria, unspecified | CPT/HCPCS: 80053; 80061; 81000; 83036; 84443; 85025; 87077; 87086; 87184 ==

== ENCOUNTER → 2025-08-31 07:58 | Outpatient (BNVA) | payer OTHER, SELFPAY | PROVIDERS: PCP Nurse Practitioner; Visit Provider Nurse Practitioner | DX: E10.9 Type 1 diabetes mellitus without complications (principal); Z79.4 Long term (current) use of insulin | CPT/HCPCS: 80053; 80061; 81000; 82043; 83036; 84443; 85025 ==

== ENCOUNTER 2025-10-30 07:44 | Outpatient (CLI) | payer OTHER, SELFPAY ==
--- NOTE | 2025-10-30 08:00 | MM_ITS ---
WS: [id number] BILATERAL SCREENING DIGITAL TOMOSYNTHESIS MAMMOGRAM WITH CAD HISTORY: Z12.31 - Encounter for screening mammogram for malignant ... COMPARISON: 10/10/2024, 09/04/2023, 08/29/2022 Bilateral CC and MLO views with tomosynthesis and synthetic mammography submitted. Computer aided detection analyzed. Breast composition: There are scattered areas of fibroglandular density. No suspicious masses, microcalcifications or architectural distortion. Stable calcifications and intramammary lymph nodes noted. No new mass or area of distortion. MM/MM [facility] tomosynthesis [id number] IMPRESSION: BI-RADS: 2 - Benign. FOLLOW UP: 1 Year Follow-up
== END 2025-10-30 07:45 | disposition home or self-care (01) ==
LOC: RAD 07:44
PROVIDERS: PCP Nurse Practitioner; Visit Provider Nurse Practitioner
DX: Z12.31 Encounter for screening mammogram for malignant neoplasm of breast (principal); R92.323 Mammographic fibroglandular density, bilateral breasts; R59.0 Localized enlarged lymph nodes
CPT/HCPCS: 77063; 77067